=== PATIENT | male | born 1965 | race Caucasian/White ===

== ENCOUNTER 2018-11-07 12:47 | Emergency (ER) | payer SELFPAY ==
[~2018-11-07] VITALS: Ht 160 cm; Wt 83.7 kg
[2018-11-07 12:51] VITALS: BP 145/86; PULSE 82; RESP 17; Ht 160 cm; Wt 83.7 kg
[2018-11-07] MEDS ORDERED: KETOROLAC 30 MG INJ IM STA (13:28)
[2018-11-07] MEDS ORDERED: HYDROCODONE/APAP (5/325) TAB PO ONE (13:30)
--- NOTE | 2018-11-07 14:41 | ERD ---
ER Documentation Chief Complaint Chief Complaint RIGHT ARM/WRIST /SHOULDER PAIN S/P GLF YESTERDAY, MILD SWELLING NOTED HPI 53-year-old male, previously healthy, right-handed, presents the emergency department, complaining of right wrist pain after sustaining a ground-level fall that occurred yesterday. The pain is dull, throbbing, constant, 8/10, worsened by hand motion. The patient denies head trauma, no loss of consciousness. The patient also denies distal weakness, numbness or tingling. ROS All systems reviewed and are negative except as per history of present illness. Medications Home Meds Active Scripts Ibuprofen* (Motrin*) 600 Mg Tab, 600 MG PO Q6H PRN for PAIN AND OR ELEVATED TEMP, #20 TAB Prov:RYAN WYNN MD 11/07/18 Hydrocodone/Acetaminophen ([place] 5-325 Tablet) 1 Each Tablet, 1 TAB PO BID PRN for PAIN for 5 Days, #10 TAB Prov:RYAN WYNN MD 11/07/18 Allergies Allergies: Coded Allergies: No Known Drug Allergies (Verified Allergy, Unknown, 11/07/18) PMhx/Soc History of Surgery: No Anesthesia Reaction: No Hx Neurological Disorder: No Hx Respiratory Disorders: No Hx Cardiac Disorders: No Hx Psychiatric Problems: No Hx Miscellaneous Medical Probl: No Hx Alcohol Use: Yes (OCCASSIONAL) Hx Substance Use: No Hx Tobacco Use: No Smoking Status: Never smoker FmHx Family History: No diabetes, No coronary disease Physical Exam Vitals Vital Signs Date Temp Pulse Resp B/P (MAP) Pulse Ox O2 O2 Flow FiO2 Time Delivery Rate 11/07/18 98.0 82 17 145/86 100 12:51 (105) Physical Exam Const: No acute distress Head: Atraumatic Eyes: Normal Conjunctiva ENT: Normal External Ears, Nose and Mouth. Neck: Full range of motion. No meningismus. Resp: Clear to auscultation bilaterally Cardio: Regular rate and rhythm, no murmurs Abd: Soft, non tender, non distended. Normal bowel sounds Skin: No petechiae or rashes Back: No midline or flank tenderness Ext: Right upper extremity: Tenderness and edema of the wrist, with decreased range of motion. Distal neurovascular exam intact. Neur: Awake and alert Psych: Normal Mood and Affect Results 24 hrs Current Medications Medications Dose Sig/Kane Start Time Status Last (Trade) Ordered Route PRN Stop Time Admin Dose Reason Admin Ketorolac 30 mg ONCE STAT 11/07/18 DC 11/07/18 Tromethamine IM 13:28 13:40 (Toradol) 11/07/18 13:31 2 tab ONCE ONCE 11/07/18 DC 11/07/18 Acetaminophen PO 13:30 13:39 / 11/07/18 13:31 Hydrocodone Bitart ([place] (5/325)) Patient: SAYRA GUZMAN : 1965 Age: 53 Sex: M MR #: [id number] DOS: 11/07/18 1328 Ordering MD: RYAN WYNN MD Location: [facility] Room/Bed: PROCEDURE: Right wrist x-ray CLINICAL INDICATION: Trauma TECHNIQUE: AP, lateral and oblique views of the wrist were obtained. COMPARISON: None FINDINGS: There is soft tissue swelling on the radial aspect of the wrist. The joint sp aces are intact with anatomic alignment. Noted is cortical interruption on the metaphysis of the radial aspect of the wrist with a minimally impacted fracture of the distal metaphysis. No other fractures seen. IMPRESSION: Minimally impacted fracture distal metaphysis right radius with overlying soft tissue swelling. .Simone Rich MD, MD Date Time Electronically viewed and signed by .Simone Rich MD, MD on 11/07/2018 14:28 Procedures/MDM Differential diagnosis considered include but not limited are: sprain/strain, ligament injury, fracture, dislocation, low suspicion for acute infectious process. Soft compartments, neurovascular exam grossly intact. Physical examination and clinical presentation consistent with right distal radius fracture. During the ED course the patient received treatment with right sugar tong splint with sling presenting overall improvement of the symptoms. Splint evaluation: Type: Sugar tong Location: Right upper extremity Position: good alignment in anatomical position Neurovascular intact Results and clinical impression discussed with patient who agrees with management. The patient is stable to be treated outpatient and will be discharged home with recommendations for Ortho evaluation DREW, meanwhile, ice, rest and partial immobilization. NSAIDs 3 times daily for 5 days and close monitoring. The patient was instructed to follow up with the primary care provider in the next 48h. If symptoms persist, worsen or new symptoms develop, then patient should return to the ED immediately. Instructions explained and given to patient with acknowledgment and demonstrated understanding. Disclaimer: Inadvertent spelling and grammatical errors are likely due to EHR/dictation software use and do not reflect on the overall quality of patient care. Also, please note that the electronic time recorded on this note does not necessarily reflect the actual time of the patient encounter. Departure Diagnosis: Primary Impression: Fracture of right distal radius Condition: Stable Additional Instructions: Thank you very much for allowing us to participate in your care. Your health and safety is our top priority at [facility]. The evaluation in the emergency department has been done to rule out an acute emergency. Chronic, [id number] conditions may have not been evaluated; therefore, you need to follow up with a primary care provider in the next 48h. If symptoms persist, worsen or new symptoms develop, then patient should return to the ED immediately. Call your primary care doctor TOMORROW for an appointment during the next 2-4 days and bring all the information provided. Have prescriptions filled and follow precisely the directions on the label. If the symptoms get worse and your provider is unavailable, return to the Emergency Department immediately. RYAN WYNN MD Nov 07, 2018 14:41
[2018-11-07] MEDS ORDERED: IBUP-1542 PO (15:03)
[2018-11-07] MEDS ORDERED: HYDR-4011 PO (15:03)
== END 2018-11-07 15:55 | disposition home or self-care (01) ==
LOC: FTE 12:47
DX: S52.591A Other fractures of lower end of right radius, initial encounter for closed fracture (principal); W18.39XA Other fall on same level, initial encounter; Y92.9 Unspecified place or not applicable
CPT/HCPCS: 29105; 73070; 73110; 73130; 96372; 99284; J1885